=== PATIENT | female | born 1965 | race African-American/Black ===

== ENCOUNTER 2019-09-08 17:38 | Inpatient (IN) | payer OTHER ==
[2019-09-08 20:34] VITALS: BMI 16.6
--- NOTE | 2019-09-08 23:51 | HP ---
COWS - Scale Resting Pulse: 1= VT 81-100 Sweatin=Flushed/Facial Moisture Restless Observation: 1= Difficult to Sit Still Pupil Size: 2= Moderately Dilated (Pupils 4 mm) Bone or Joint Aches: 1= Mild Discomfort Runny Nose/ Eye Tearin= Runny Nose/Eyes GI Upset > 30mins: 3= Vomiting/Diarrhea Tremor Observation: 2= Slight Tremor Visible Yawning Observation: 0= None Anxiety or Irritability: 1=Feels Anxious/Irritable Goose Flesh Skin: 0=Smooth Skin COWS Score: 15 CIWA Score Nausea/Vomitin-Int. Nausea w/Dry Heave (Episoes of vomiting) Muscle Tremors: 3 (Visable) Anxiety: 3 Agitation: 1-Slight > Activity Paroxysmal Sweats: 3 (Increased facial moisture) Orientation: 0-Oriented Tacttile Disturbances: 1-Very Mild Itch/Numbness Auditory Disturbances: 0-None Visual Disturbances: 0-None Headache: 0-None Present CIWA-Ar Total Score: 15 - Admission Criteria OASAS Guidelines: Admission for Medically Managed Detox: Requires at least one of the followin. CIWA greater than 12 2. Seizures within the past 24 hours 3. Delirium tremens within the past 24 hours 4. Hallucinations within the past 24 hours 5. Acute intervention needed for co occurring medical disorder 6. Acute intervention needed for co occurring psychiatric disorder 7. Severe withdrawal that cannot be handled at a lower level of care (continued vomiting, continued diarrhea, abnormal vital signs) requiring intravenous medication and/or fluids 8. Patient presents the following: CIWA greater than 12 Admission Criteria Met: Admission criteria met Admitting History and Physical - Past Medical History ...LMP: 08/13/10 - Smoking History Smoking history: Current every day smoker Have you smoked in the past 12 months: Yes Aproximately how many cigarettes per day: 20 - Alcohol/Substance Use Hx Alcohol Use: Yes (reports drinking since 16 yo,12 pks of beer daily) Admission [facility] Chief Complaint: "Here to get help to get my life on track. My mother yesterday" Allergies/Adverse Reactions: Allergies Allergy/AdvReac Type Severity Reaction Status Date / Time fish derived Allergy Intermediate Hives Verified 09/08/19 20:25 Penicillins Allergy Intermediate Hives Verified 09/08/19 20:25 tomato [Tomato] Allergy Intermediate Hives Verified 09/08/19 20:25 History of Present Illness: 54 yo with alcohol withdrawal symptoms seeking detox. CHUN: 0.0 UTox: +SONDRA w/ a repeat tox unchanged despite patient's hx opiates and clinical symptoms. Hx: Overdose - 01/2019. Denies blackouts. Seizures r/t CVA's Alcohol use began at age 16. Currently drinks 12 packs beer daily. Cocaine use since age 16. Now smokes $100/day Heroin use since age 21. Stopped for a while. Started back using in 2009. States current use 4-5 bags. States used to be on Methadone but left in 2018. No Narcan kit at home. Encouraged to consider MAT. Nicotine use began at age 16. Smokes 1 PPD. PMHx: HIV+ (Questionable medication compliance), Asthma, HTN: Herpes 1 & 2, Seizures (last 2 years ago); s/p Hirschsprung Disease: Osteoarthritis, hemorrhoids Abnormal EKG on 05/28/19 MHHx: Bipolar: Depression: Anxiety: On meds. States see's Dr. Parker in [facility]. Denies thoughts of harming self or others. SHx: Domiciled. Unemployed. ([employer]). Recent ticket for drinking beer on street. Patient Name: Araceli Dela Cruz Date: 1965 Address: [address] [place] [address] Sex: Female Rx Written Rx Dispensed Drug Quantity Days Supply Prescriber Name 09/28/2018 09/28/2018 zolpidem tartrate 10 mg tablet 30 30 Rodolfo Parker Patient Name: ARACELI DELA CRUZ Date: 1965 Address: [address] [place] [address] Sex: Female Rx Written Rx Dispensed Drug Strength Quantity Days Supply Prescriber Name 10/13/2017 10/13/2017 ACETAMINOPHEN-COD #3 TABLET 16.0 4 MILLIE MARTINEZ, IRLANDA 10/14/2017 10/14/2017 CLONAZEPAM 2 MG TABLET 30.0 30 DONNA GINA 11/14/2017 11/14/2017 CLONAZEPAM 2 MG TABLET 30.0 30 David BEAR JOSEPH 09/29/2017 09/29/2017 CLONAZEPAM 2 MG TABLET 15.0 15 DONNA, GINA 12/14/2017 12/14/2017 CLONAZEPAM 2 MG TABLET 30.0 30 MD CARO, MEHRAN Patient Name: ARACELI DELA CRUZ Date: 03/21/1963 Address: [address] [place] [id number] Sex: Female Rx Written Rx Dispensed Drug Strength Quantity Days Supply Prescriber Name 01/14/2016 01/14/2016 OXYCODONE-ACETAMINOPHEN 5-325 13.0000 3 Suresh Francis Patient Name: ARACELI DELA CRUZ Date: 1965 Address: [address] [place] [id number] Sex: Female Rx Written Rx Dispensed Drug Strength Quantity Days Supply Prescriber Name 10/23/2015 10/23/2015 OXYCODONE-ACETAMINOPHEN 5-325 10.0000 2 Radha Hinojosa Exam Limitations: No Limitations - Ebola screening Have you traveled outside of the country in the last 21 days: No (N) Have you had contact with anyone from an Ebola affected area: No Have you been sick,other than usual withdrawal symptoms: No Do you have a fever: No - Review of Systems Constitutional: Chills, Diaphoresis, Changes in sleep (Difficulty falling and staying asleep), Unintentional Wgt. Loss EENT: reports: Blurred Vision, Nose Congestion, Dental Problems (Partials. Chews and swallows ok) Respiratory: reports: No Symptoms reported Cardiac: reports: No Symptoms Reported GI: reports: Blood Streaked Bowels (r/t hemorrhoids), Diarrhea, Nausea, Poor Appetite, Vomiting, Indigestion (Heart burn), Other (hemorrhoids w/ occ blood streaks) : reports: No Symptoms Reported Musculoskeletal: reports: Back Pain (Chronic intermittent sharp, throbbing back pain. States withdrawal makes it worse. Improves w/ tylenol and heating pad.) Integumentary: reports: No Symptoms Reported Neuro: reports: Tremors Endocrine: reports: Increased Thirst Hematology: reports: Anemia Psychiatric: reports: Judgement Intact, Mood/Affect Appropiate, Orientated x3, Agitated, Anxious, Depressed (Denies thoughts of harming self or others.) Other Systems: Reviewed and Negative Patient History - Patient Medical History Hx Anemia: No Hx Asthma: Yes (ON MDI) Hx Chronic Obstructive Pulmonary Disease (COPD): No Hx Cancer: No Hx Cardiac Disorders: No Hx Congestive Heart Failure: No Hx Hypertension: Yes (ON MEDS.) Hx Hypercholesterolemia: No Hx Pacemaker: No HX Cerebrovascular Accident: No Hx Seizures: Yes (WITHDRAWAL SEIZURE) Hx Dementia: No Hx Diabetes: No Hx Gastrointestinal Disorders: Yes (GERD) Hx Liver Disease: No Hx Genitourinary Disorders: No Hx Sexually Transmitted Disorders: (HIV INFECTION) Hx Renal Disease (ESRD): No Hx Thyroid Disease: No Hx Hepatitis C: No Hx Depression: Yes Hx Suicide Attempt: No Hx Bipolar Disorder: Yes (medicated ) Hx Schizophrenia: No - Patient Surgical History Past Surgical History: Yes Hx Neurologic Surgery: No Hx Cataract Extraction: No Hx Cardiac Surgery: No Hx Lung Surgery: No Hx Breast Surgery: No Hx Breast Biopsy: No Hx Abdominal Surgery: Yes (Colostomy reveseral at 13 mos old; myomectomy in 2002 ) Hx Appendectomy: No Hx Cholecystectomy: No Hx Genitourinary Surgery: No Hx Section: No Hx Orthopedic Surgery: No Other Surgical History: Hirschsprung disease congential sx Anesthesia Reaction: No - PPD History Previous Implant?: Yes Documented Results: Negative w/proof Implanted On Prior [facility] Admission?: Yes Date: 05/30/18 Results: 0MM PPD to be Administered?: Yes - Reproductive History Patient is a Female of Child Bearing Age (11 -55 yrs old): Yes Last Menstrual Period: 08/13/10 Patient : No - Smoking Cessation Smoking history: Current every day smoker Have you smoked in the past 12 months: Yes Aproximately how many cigarettes per day: 20 Cigars Per Day: 0 Hx Chewing Tobacco Use: No Initiated information on smoking cessation: Yes 'Breaking Loose' booklet given: 09/09/19 - Substance & Tx. History Hx Alcohol Use: Yes Hx Substance Use: Yes Substance Use Type: Alcohol, Cocaine, Heroin Hx Substance Use Treatment: Yes (detox, rehab, past MMTP) - Substances abused Crack Other (specify): cocaine Substance route: Smoking Frequency: Daily Amount used: 10 bags Age of first use: 16 Date of last use: 09/07/19 Alcohol Substance route: Oral Frequency: Daily Amount used: 4 to 5 cans of beers Age of first use: 16 Date of last use: 09/07/19 Heroin Substance route: Inhalation Frequency: Daily Amount used: 4 to 5 bags Age of first use: 21 Date of last use: 09/07/19 Admission Physical Exam [facility] - Vital Signs Vital Signs: Vital Signs - 24 hr 09/08/19 20:24 Temperature 982 F H Pulse Rate 88 Respiratory 16 Rate Blood Pressure 162/102 H - Physical General Appearance: Yes: Moderate Distress, Thin, Tremorous, Sweating ( Increased facial moisture), Anxious HEENTM: Yes: EOMI, Hearing grossly Normal, Normocephalic, Normal Voice, EFREN ( Pupils 4 mm), Pharynx Normal, Nasal Congestion, Other (Tearing) Respiratory: Yes: Lungs Clear (Pulse Ox = 97 %), Normal Breath Sounds, No Respiratory Distress Neck: Yes: No masses,lesions,Nodules, Supple Breast: Yes: Breast Exam Deferred Cardiology: Yes: Regular Rhythm, Regular Rate, S1, S2, Murmur Abdominal: Yes: Non Tender, Flat, Soft, Increased Bowel Sounds Genitourinary: Yes: Within Normal Limits Back: Yes: Normal Inspection, Other (Soft/firm mass, approx 4 cm at mid upper back. Ni increased warmth, erythema or tenderness) Musculoskeletal: Yes: full range of Motion, Gait Steady Extremities: Yes: Normal Capillary Refill (Peripheral pulses +. 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 NML intact, Fully Oriented, Alert, Motor Strength 5/5, Normal Response Integumentary: Yes: Normal Color, Warm, Moist (Increased facial moisture) Lymphatic: Yes: Within Normal Limits - Diagnostic (1) History of HIV infection Current Visit: Yes Status: Chronic (2) History of hemorrhoids Current Visit: Yes Status: Chronic (3) History of herpes genitalis Current Visit: Yes Status: Chronic (4) History of asthma Current Visit: Yes Status: Chronic (5) Underweight Current Visit: Yes Status: Chronic (6) Murmur, cardiac Current Visit: Yes Status: Acute (7) Alcohol dependence with uncomplicated withdrawal Current Visit: Yes Status: Acute (8) Cocaine dependence Current Visit: No Status: Chronic Qualifiers: Substance use status: uncomplicated Qualified Code(s): F14.20 - Cocaine dependence, uncomplicated (9) GERD (gastroesophageal reflux disease) Current Visit: Yes Status: Chronic Qualifiers: Esophagitis presence: without esophagitis Qualified Code(s): K21.9 - Gastro -esophageal reflux disease without esophagitis (10) HTN (hypertension) Current Visit: Yes Status: Chronic Qualifiers: Hypertension type: essential hypertension Qualified Code(s): I10 - Essential (primary) hypertension (11) Hirschsprung's disease Current Visit: Yes Status: Chronic (12) Nicotine dependence Current Visit: Yes Status: Chronic Qualifiers: Nicotine product type: cigarettes Substance use status: in withdrawal Qualified Code(s): F17.213 - Nicotine dependence, cigarettes, with withdrawal (13) Lipoma of back Current Visit: Yes Status: Chronic Cleared for Admission [facility] - Detox or Rehab [facility] Level of Care: Medically Managed Detox Regimen/Protocol: Valium Claeared for Rehab Admission: No Breathalyzer - Breathalyzer Breathalyzer: 0 Urine Drug Screen - Test Device Lot number: [id number] - Control Is test valid?: Yes - Results Drug screen NEGATIVE: No Urine drug screen results: SONDRA-Cocaine Inpatient Rehab Admission - Rehab Decision to Admit Inpatient rehab admission?: No
[2019-09-09] MEDS ORDERED: MAG HYDROX/AL HYDROX/SIMETH 30 ML UNIT-DOSE CUP PO PRN (00:48)
[2019-09-09] MEDS ORDERED: MAGNESIUM CITRATE 300 ML BOTTLE PO PRN (00:48)
[2019-09-09] MEDS ORDERED: MELATONIN 5 MG TABLETS PO PRN (00:48)
[2019-09-09] MEDS ORDERED: MENTHOL/PHENOL 1 EACH UD MM PRN (00:48)
[2019-09-09] MEDS ORDERED: diazePAM 5 MG TABLET PO ONE (00:48)
[2019-09-09] MEDS ORDERED: ACETAMINOPHEN 325 MG TABLET (FP) PO PRN ×2 (00:48)
[2019-09-09] MEDS ORDERED: METHOCARBAMOL 500 MG TABLET PO PRN (00:48)
[2019-09-09] MEDS ORDERED: IBUPROFEN 400 MG TABLET (FP) PO PRN (00:48)
[2019-09-09] MEDS ORDERED: MAGNESIUM HYDROX 2400MG/30ML ORAL SUSPENSION 30 ML CUP PO PRN (00:48)
[2019-09-09] MEDS ORDERED: BISMUTH SUBSALICYLATE 524 MG/30 ML UD PO PRN (00:48)
[2019-09-09] MEDS ORDERED: diazePAM 5 MG TABLET PO PRN (00:48)
[2019-09-09] MEDS ORDERED: ALBUTEROL SO4 8 GM HFA INHALER IH PRN (01:00)
[2019-09-09] MEDS ORDERED: cloNIDine HCL 0.1 MG TABLET PO PRN (01:00)
[2019-09-09] MEDS ORDERED: BENZOCAINE 28 GM HEMORRHOIDAL OINTMENT PR PRN (01:36)
[2019-09-09] MEDS: cloNIDine HCL 0.1 MG TABLET PO SCH ×4 (02:34→18:31)
[2019-09-09] MEDS: diazePAM 5 MG TABLET PO SCH ×3 (06:01→22:56)
--- NOTE | 2019-09-09 10:23 | EKG ---
Test Reason : Blood Pressure : / mmHG Vent. Rate : 077 BPM Atrial Rate : 077 BPM P-R Int : 124 ms QRS Dur : 082 ms QT Int : 420 ms P-R-T Axes : 057 005 -10 degrees QTc Int : 475 ms NORMAL SINUS RHYTHM POSSIBLE LEFT ATRIAL ENLARGEMENT LEFT VENTRICULAR HYPERTROPHY NONSPECIFIC T WAVE ABNORMALITY ABNORMAL ECG WHEN COMPARED WITH ECG OF 29-MAY-2018 11:47, NO SIGNIFICANT CHANGE WAS FOUND Confirmed by LAITH MONIQUE, JAMEL ([id number]) on 09/09/2019 10:22:42 AM Referred By: TORI Confirmed By:JAMEL OZUNA MD
[2019-09-09 10:32] LABS: MCH 29.3 pg (25.7-33.7); MCHC 32.6 g/dl (32.0-36.0); MEAN CELL VOLUME 89.6 fl (80-96); MEAN PLT VOLUME 9.3 fl (7.5-11.1); PLATELET COUNT 228 K/MM3 (134-434); RBC 4.46 M/mm3 (3.60-5.2); RDW 14.8 % (11.6-15.6); WHITE BLOOD COUNT 3.8 K/mm3 (4.0-10.0)
[2019-09-09] MEDS: PRENATAL VITAMINS W/ FOLIC ACID TABLET (FP) PO SCH (10:40)
[2019-09-09] MEDS: valACYclovir HCL 500 MG TABLET (FP) PO SCH ×2 (10:41→22:55)
[2019-09-09] MEDS: NICOTINE 14 MG/24 HOURS TOPICAL PATCH TD SCH (10:41)
[2019-09-09] MEDS: BUDESONIDE/FORMETEROL FUMARATE 160/4.5 mcg INHALER IH SCH ×2 (10:41→22:57)
[2019-09-09] MEDS: amLODIPine BESYLATE 10 MG TABLET (FP) PO SCH (10:41)
[2019-09-09 10:49] LABS: ALBUMIN 3.1 g/dl (3.4-5.0); BILIRUBIN,TOTAL 0.3 mg/dL (0.2-1); BLOOD UREA NITROGEN 12.9 mg/dL (7-18); CALCIUM 9.1 mg/dL (8.5-10.1); CREATININE 0.7 mg/dL (0.55-1.3); POTASSIUM 3.7 mmol/L (3.5-5.1); TOT PROT 6.6 g/dl (6.4-8.2)
--- NOTE | 2019-09-09 11:38 | PN ---
S CIWA - CIWA Score Nausea/Vomitin-Mild Nausea/No Vomiting Muscle Tremors: 2 Anxiety: 3 Agitation: 3 Paroxysmal Sweats: 1-Minimal Palms Moist Orientation: 0-Oriented Tacttile Disturbances: 0-None Auditory Disturbances: 0-None Visual Disturbances: 0-None Headache: 1-Very Mild CIWA-Ar Total Score: 11 BHS Progress Note (SOAP) Subjective: Pt admitted yesterday for alcohol detox- pt has HIV, asthma. Pt states she has been taking HIV meds consistently and needs to have it continued here. O: Vital Signs - 24 hr 09/08/19 09/09/19 09/09/19 20:24 01:54 03:30 Temperature 982 F H 98.4 F Pulse Rate 88 82 Respiratory 16 18 18 Rate Blood Pressure 162/102 H 176/116 H 09/09/19 09/09/19 06:00 09:44 Temperature 98.1 F 98.4 F Pulse Rate 84 83 Respiratory 16 18 Rate Blood Pressure 145/94 124/97 Laboratory Tests 09/09/19 09/09/19 08:10 08:10 WBC 3.8 L RBC 4.46 Hgb 13.0 Hct 40.0 MCV 89.6 MCH 29.3 MCHC 32.6 RDW 14.8 D Plt Count 228 MPV 9.3 Sodium 142 Potassium 3.7 Chloride 110 H Carbon Dioxide 24 Anion Gap 8 BUN 12.9 Creatinine 0.7 Est GFR (CKD-EPI)AfAm 115.45 Est GFR (CKD-EPI)NonAf 99.62 Random Glucose 100 Calcium 9.1 Total Bilirubin 0.3 AST 10 L ALT 19 Alkaline Phosphatase 71 Total Protein 6.6 Albumin 3.1 L a/p: alcohol detox- pt on detox protocol HIV- continued regimen, neurotin for neuropathy asthma- continue treatment
[2019-09-09] MEDS ORDERED: PNEUMOC 13-VAL CONJ-DIP CRM/PF 0.5 ML DISP.SYRIN IM ONE (12:00)
[2019-09-09] MEDS: EMTRICITABINE 200MG/TENOFOVIR 300MG PO SCH (12:27)
[2019-09-09] MEDS: RALTEGRAVIR POTASSIUM 400 MG TAB PO SCH ×2 (12:27→22:54)
[2019-09-09] MEDS: GABAPENTIN 300 MG CAPSULE (FP) PO SCH ×2 (13:10→22:55)
[2019-09-09] MEDS ORDERED: PHENYLEPHRINE 0.25%/STARCH 1 EACH SUPP.RECT RC PRN (14:00)
[2019-09-09] MEDS ORDERED: LOPERAMIDE HCL 2 MG CAPSULE PO SCH (14:00)
[2019-09-09] MEDS: LOPERAMIDE HCL 2 MG CAPSULE PO SCH (18:31)
[2019-09-09] MEDS: MONTELUKAST NA 10 MG TABLET PO SCH (22:55)
[2019-09-09] MEDS: THIAMINE HCL 100 MG TABLET (FP) PO SCH (22:56)
[2019-09-10] MEDS: cloNIDine HCL 0.1 MG TABLET PO SCH ×4 (03:17→22:29)
[2019-09-10] MEDS: LOPERAMIDE HCL 2 MG CAPSULE PO SCH ×3 (06:05→17:08)
[2019-09-10] MEDS: GABAPENTIN 300 MG CAPSULE (FP) PO SCH ×3 (06:05→22:27)
[2019-09-10] MEDS: diazePAM 5 MG TABLET PO SCH ×2 (06:08→21:39)
[2019-09-10] MEDS: valACYclovir HCL 500 MG TABLET (FP) PO SCH ×2 (10:50→22:28)
[2019-09-10] MEDS: EMTRICITABINE 200MG/TENOFOVIR 300MG PO SCH (10:50)
[2019-09-10] MEDS: amLODIPine BESYLATE 10 MG TABLET (FP) PO SCH (10:51)
[2019-09-10] MEDS: PRENATAL VITAMINS W/ FOLIC ACID TABLET (FP) PO SCH (10:51)
[2019-09-10] MEDS: NICOTINE 14 MG/24 HOURS TOPICAL PATCH TD SCH (10:51)
[2019-09-10] MEDS: BUDESONIDE/FORMETEROL FUMARATE 160/4.5 mcg INHALER IH SCH ×2 (10:51→22:28)
[2019-09-10] MEDS: RALTEGRAVIR POTASSIUM 400 MG TAB PO SCH ×2 (12:21→22:27)
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
[2019-09-10] MEDS ORDERED: hydrOXYzine PAMOATE 25 MG CAPSULE (FP) PO PRN (13:44)
--- NOTE | 2019-09-10 17:54 | PN ---
S CIWA - CIWA Score Nausea/Vomitin-Mild Nausea/No Vomiting Muscle Tremors: 2 Anxiety: 2 Agitation: 2 Paroxysmal Sweats: 2 Orientation: 0-Oriented Tacttile Disturbances: 0-None Auditory Disturbances: 0-None Visual Disturbances: 0-None Headache: 0-None Present CIWA-Ar Total Score: 9 BHS Progress Note (SOAP) Subjective: Sweating, chills, diarrhea, tremor, poor appetite. Patient was in hallway and noticed to be hampering over when RN and other staff assisted her to her room. Patient stated that she was feeling dizzy and weak. Fish Warden encouraged patient to drink enough water and stay in her room but patient came out to the nursing station after couple of minutes and was walking with steady gait in nad. Objective: 09/10/19 17:51 Last Vital Signs Temp Pulse Resp BP Pulse Ox 98.1 F 97 H 18 131/74 09/10/19 17:46 09/10/19 17:46 09/10/19 17:46 09/10/19 17:46 PE: Lungs ctab/l, no added breath sounds Heart: RRR, S1S2+ Skin: warm to touch, turgor good Neuro: steady gait Laboratory Tests 09/09/19 09/09/19 09/10/19 08:10 08:10 05:55 WBC 3.8 L RBC 4.46 Hgb 13.0 Hct 40.0 MCV 89.6 MCH 29.3 MCHC 32.6 RDW 14.8 D Plt Count 228 MPV 9.3 Sodium 142 Potassium 3.7 Chloride 110 H Carbon Dioxide 24 Anion Gap 8 BUN 12.9 Creatinine 0.7 Est GFR (CKD-EPI)AfAm 115.45 Est GFR (CKD-EPI)NonAf 99.62 Random Glucose 100 Calcium 9.1 Total Bilirubin 0.3 AST 10 L ALT 19 Alkaline Phosphatase 71 Total Protein 6.6 Albumin 3.1 L RPR Titer Nonreactive Labs reviewed: albumin 3.1 (L) Assessment: 09/10/19 17:52 Withdrawal sxs Noted with hypoalbuminemia Plan: Continue detox Encouraged PO water intake Hypoalbuminemia: encouraged diet and ensure
[2019-09-10 18:35] LABS: EPI CELLS 4.3 /HPF (0-5/HPF); HYALINE CASTS 2 /lpf (0-8); URINE APPEARANCE CLOUDY; URINE BILIRUBIN NEGATIVE (NEGATIVE); URINE COLOR YELLOW; URINE GLUCOSE (UA) NEGATIVE (NEGATIVE); URINE KETONE NEGATIVE (NEGATIVE); URINE LEUK ESTERASE 2+ (NEGATIVE); URINE NITRITE NEGATIVE (NEGATIVE); URINE PROTEIN NEGATIVE (NEGATIVE); URINE RBC 3 /hpf (0-4); URINE UROBILINOGEN 0.2 mg/dL (0.2-1.0); URINE WBC 5 /hpf (0-5)
[2019-09-10] MEDS: THIAMINE HCL 100 MG TABLET (FP) PO SCH (21:39)
[2019-09-10] MEDS: traZODone HCL 50 MG TABLET (FP) PO SCH (21:39)
[2019-09-10] MEDS ORDERED: diphenhydrAMINE HCL 25 MG CAPSULE (FP) PO PRN (22:00)
[2019-09-10] MEDS: MONTELUKAST NA 10 MG TABLET PO SCH (22:28)
[2019-09-10] MEDS: LURASIDONE HCL 40 MG TABLET PO SCH (22:51)
[2019-09-11 00:19] LABS: URINE CRYSTALS 3 CA OXALATE /hpf
[2019-09-11] MEDS: GABAPENTIN 300 MG CAPSULE (FP) PO SCH ×3 (05:55→21:05)
[2019-09-11] MEDS ORDERED: diazePAM 5 MG TABLET PO ONE (06:00)
[2019-09-11] MEDS: LOPERAMIDE HCL 2 MG CAPSULE PO SCH ×3 (06:00→16:59)
[2019-09-11] MEDS: RALTEGRAVIR POTASSIUM 400 MG TAB PO SCH ×2 (10:12→21:05)
[2019-09-11] MEDS: NICOTINE 14 MG/24 HOURS TOPICAL PATCH TD SCH (10:12)
[2019-09-11] MEDS: valACYclovir HCL 500 MG TABLET (FP) PO SCH ×2 (10:14→21:04)
[2019-09-11] MEDS: EMTRICITABINE 200MG/TENOFOVIR 300MG PO SCH (10:14)
[2019-09-11] MEDS: amLODIPine BESYLATE 10 MG TABLET (FP) PO SCH (10:14)
[2019-09-11] MEDS: PRENATAL VITAMINS W/ FOLIC ACID TABLET (FP) PO SCH (10:14)
[2019-09-11] MEDS: BUDESONIDE/FORMETEROL FUMARATE 160/4.5 mcg INHALER IH SCH ×2 (10:14→21:04)
--- NOTE | 2019-09-11 12:22 | PN ---
S CIWA - CIWA Score Nausea/Vomitin-No Nausea/No Vomiting Muscle Tremors: 2 Anxiety: 1-Mildly Anxious Agitation: 1-Slight > Activity Paroxysmal Sweats: 1-Minimal Palms Moist Orientation: 0-Oriented Tacttile Disturbances: 0-None Auditory Disturbances: 0-None Visual Disturbances: 0-None Headache: 0-None Present CIWA-Ar Total Score: 5 BHS Progress Note (SOAP) Subjective: sweats UTI body aches hemorrhoids. I want the cream not the suppository Objective: 09/11/19 12:23 Vital Signs Temperature 97.2 F L 09/11/19 10:00 Pulse Rate 76 09/11/19 10:00 Respiratory Rate 18 09/11/19 10:00 Blood Pressure 107/60 09/11/19 10:00 O2 Sat by Pulse Oximetry (%) Laboratory Tests 09/08/19 09/09/19 09/09/19 11:41 08:10 08:10 WBC 3.8 L RBC 4.46 Hgb 13.0 Hct 40.0 MCV 89.6 MCH 29.3 MCHC 32.6 RDW 14.8 D Plt Count 228 MPV 9.3 Sodium 142 Potassium 3.7 Chloride 110 H Carbon Dioxide 24 Anion Gap 8 BUN 12.9 Creatinine 0.7 Est GFR (CKD-EPI)AfAm 115.45 Est GFR (CKD-EPI)NonAf 99.62 Random Glucose 100 Calcium 9.1 Total Bilirubin 0.3 AST 10 L ALT 19 Alkaline Phosphatase 71 Total Protein 6.6 Albumin 3.1 L Urine Color Urine Appearance Urine pH Ur Specific [place] Urine Protein Urine Glucose (UA) Urine Ketones Urine Blood Urine Nitrite Urine Bilirubin Urine Urobilinogen Ur Leukocyte Esterase Urine WBC (Auto) Urine RBC (Auto) Urine Casts (Auto) U Epithel Cells (Auto) Urine Crystals (Auto) Urine Bacteria (Auto) POC Urine HCG, Qual Negative RPR Titer 09/10/19 09/10/19 05:55 11:41 WBC RBC Hgb Hct MCV MCH MCHC RDW Plt Count MPV Sodium Potassium Chloride Carbon Dioxide Anion Gap BUN Creatinine Est GFR (CKD-EPI)AfAm Est GFR (CKD-EPI)NonAf Random Glucose Calcium Total Bilirubin AST ALT Alkaline Phosphatase Total Protein Albumin Urine Color Yellow Urine Appearance Cloudy Urine pH 5.0 Ur Specific [place] 1.020 Urine Protein Negative Urine Glucose (UA) Negative Urine Ketones Negative Urine Blood Negative Urine Nitrite Negative Urine Bilirubin Negative Urine Urobilinogen 0.2 Ur Leukocyte Esterase 2+ H Urine WBC (Auto) 5 Urine RBC (Auto) 3 Urine Casts (Auto) 2 U Epithel Cells (Auto) 4.3 Urine Crystals (Auto) 3 ca oxalate Urine Bacteria (Auto) 48.0 POC Urine HCG, Qual RPR Titer Nonreactive u/a show UTI as per pt confirmation bactrim ds bid x 7 days ordered pt was made aware of hemorrhoids cream ordered [id number] ambulating no acute distress Assessment: 09/11/19 12:25 mild withdrawals Plan: continue detox d/c in am bactrim ds ordered
[2019-09-11] MEDS: NICOTINE POLACRILEX 2 MG GUM BUC PRN ×2 (13:28→18:30)
[2019-09-11] MEDS: SULFAMETHOXAZOLE/TRIMETHOPRIM 800MG/160MG D.S. TABLET PO SCH ×2 (14:25→21:05)
[2019-09-11] MEDS: LURASIDONE HCL 40 MG TABLET PO SCH (17:00)
[2019-09-11] MEDS: MONTELUKAST NA 10 MG TABLET PO SCH (21:05)
[2019-09-11] MEDS: THIAMINE HCL 100 MG TABLET (FP) PO SCH (21:05)
[2019-09-11] MEDS: traZODone HCL 50 MG TABLET (FP) PO SCH (21:05)
[2019-09-12] MEDS: GABAPENTIN 300 MG CAPSULE (FP) PO SCH (05:58)
[2019-09-12] MEDS ORDERED: diazePAM 5 MG TABLET PO ONE (06:00)
[2019-09-12] MEDS: LOPERAMIDE HCL 2 MG CAPSULE PO SCH ×2 (07:01→10:11)
--- NOTE | 2019-09-12 09:23 | DS ---
[facility] Detox Discharge Summary Admission Date: 09/08/19 Discharge Date: 09/12/19 - History Present History: Alcohol Dependence, Cocaine Dependence, MMTP - Physical Exam Results Vital Signs: Vital Signs Temperature 97.7 F 09/12/19 08:05 Pulse Rate 84 09/12/19 08:05 Respiratory Rate 18 09/12/19 08:05 Blood Pressure 114/74 09/12/19 08:05 O2 Sat by Pulse Oximetry (%) Pertinent Admission Physical Exam Findings: Vital Signs Temperature 97.7 F 09/12/19 08:05 Pulse Rate 84 09/12/19 08:05 Respiratory Rate 18 09/12/19 08:05 Blood Pressure 114/74 09/12/19 08:05 O2 Sat by Pulse Oximetry (%) Laboratory Tests 09/08/19 09/09/19 09/09/19 11:41 08:10 08:10 WBC 3.8 L RBC 4.46 Hgb 13.0 Hct 40.0 MCV 89.6 MCH 29.3 MCHC 32.6 RDW 14.8 D Plt Count 228 MPV 9.3 Sodium 142 Potassium 3.7 Chloride 110 H Carbon Dioxide 24 Anion Gap 8 BUN 12.9 Creatinine 0.7 Est GFR (CKD-EPI)AfAm 115.45 Est GFR (CKD-EPI)NonAf 99.62 Random Glucose 100 Calcium 9.1 Total Bilirubin 0.3 AST 10 L ALT 19 Alkaline Phosphatase 71 Total Protein 6.6 Albumin 3.1 L Urine Color Urine Appearance Urine pH Ur Specific [place] Urine Protein Urine Glucose (UA) Urine Ketones Urine Blood Urine Nitrite Urine Bilirubin Urine Urobilinogen Ur Leukocyte Esterase Urine WBC (Auto) Urine RBC (Auto) Urine Casts (Auto) U Epithel Cells (Auto) Urine Crystals (Auto) Urine Bacteria (Auto) POC Urine HCG, Qual Negative RPR Titer 09/10/19 09/10/19 05:55 11:41 WBC RBC Hgb Hct MCV MCH MCHC RDW Plt Count MPV Sodium Potassium Chloride Carbon Dioxide Anion Gap BUN Creatinine Est GFR (CKD-EPI)AfAm Est GFR (CKD-EPI)NonAf Random Glucose Calcium Total Bilirubin AST ALT Alkaline Phosphatase Total Protein Albumin Urine Color Yellow Urine Appearance Cloudy Urine pH 5.0 Ur Specific [place] 1.020 Urine Protein Negative Urine Glucose (UA) Negative Urine Ketones Negative Urine Blood Negative Urine Nitrite Negative Urine Bilirubin Negative Urine Urobilinogen 0.2 Ur Leukocyte Esterase 2+ H Urine WBC (Auto) 5 Urine RBC (Auto) 3 Urine Casts (Auto) 2 U Epithel Cells (Auto) 4.3 Urine Crystals (Auto) 3 ca oxalate Urine Bacteria (Auto) 48.0 POC Urine HCG, Qual RPR Titer Nonreactive aaox3 ambulating no acute distress - Treatment Hospital Course: Detox Protocol Followed, Detoxed Safely, Responded well, Discharged Condition Good, Rehab Referral Accepted Patient has Accepted a Rehab Referral to: pt referred to inpatient rehab [facility] - Medication Discharge Medications: Ambulatory Orders Emtricitabine/Tenofovir [Truvada -] 1 tab PO DAILY 05/28/18 Albuterol Sulfate Inhaler - [Ventolin HFA Inhaler -] 2 inh PO Q6H #1 inhaler 01/12 Gabapentin [Neurontin -] 600 mg PO TID #90 capsule 05/31/18 Montelukast Na [Singulair -] 10 mg PO HS #30 tablet 05/31/18 Valacyclovir HCl [Valtrex -] 500 mg PO BID #60 tablet 05/31/18 Lurasidone HCl [Latuda -] 40 mg PO DAILY #30 tablet 06/06/18 Budesonide/Formeterol Fumarate [SYMBICORT 160/4.5mcg -] 1 inhaler PO DAILY 09/08 Raltegravir [Isentress -] 400 mg PO BID 09/08/19 Amlodipine Besylate [Norvasc -] 10 mg PO DAILY 09/12/19 - Diagnosis (1) Alcohol dependence with uncomplicated withdrawal Current Visit: Yes Status: Chronic (2) Murmur, cardiac Current Visit: Yes Status: Acute (3) Bipolar II disorder Current Visit: Yes Status: Chronic (4) Cocaine dependence Current Visit: Yes Status: Chronic Qualifiers: Substance use status: uncomplicated Qualified Code(s): F14.20 - Cocaine dependence, uncomplicated (5) GERD (gastroesophageal reflux disease) Current Visit: Yes Status: Chronic Qualifiers: Esophagitis presence: without esophagitis Qualified Code(s): K21.9 - Gastro -esophageal reflux disease without esophagitis (6) HTN (hypertension) Current Visit: Yes Status: Chronic Qualifiers: Hypertension type: essential hypertension Qualified Code(s): I10 - Essential (primary) hypertension (7) Hirschsprung's disease Current Visit: Yes Status: Chronic (8) History of HIV infection Current Visit: Yes Status: Chronic (9) History of asthma Current Visit: Yes Status: Chronic (10) History of hemorrhoids Current Visit: Yes Status: Chronic (11) History of herpes genitalis Current Visit: Yes Status: Chronic (12) Lipoma of back Current Visit: Yes Status: Chronic (13) Nicotine dependence Current Visit: Yes Status: Chronic Qualifiers: Nicotine product type: cigarettes Substance use status: uncomplicated Qualified Code(s): F17.210 - Nicotine dependence, cigarettes, uncomplicated (14) Underweight Current Visit: Yes Status: Chronic (15) Cannabis abuse, uncomplicated Current Visit: Yes Status: Chronic (16) Asthma Current Visit: Yes Status: Chronic Qualifiers: Asthma severity: mild Asthma persistence: intermittent Asthma complication type: uncomplicated Qualified Code(s): J45.20 - Mild intermittent asthma, uncomplicated (17) Herpes genitalia Current Visit: No Status: Chronic (18) Methadone maintenance therapy patient Current Visit: Yes Status: Chronic - AMA Did Patient Leave Against Medical Advice: No
[2019-09-12 09:33] VITALS: BP 113/71; PULSE 114; TEMP 97.9
[2019-09-12] MEDS: BUDESONIDE/FORMETEROL FUMARATE 160/4.5 mcg INHALER IH SCH (10:11)
[2019-09-12] MEDS: amLODIPine BESYLATE 10 MG TABLET (FP) PO SCH (10:11)
[2019-09-12] MEDS: EMTRICITABINE 200MG/TENOFOVIR 300MG PO SCH (10:12)
[2019-09-12] MEDS: SULFAMETHOXAZOLE/TRIMETHOPRIM 800MG/160MG D.S. TABLET PO SCH (10:12)
[2019-09-12] MEDS: PRENATAL VITAMINS W/ FOLIC ACID TABLET (FP) PO SCH (10:12)
[2019-09-12] MEDS: valACYclovir HCL 500 MG TABLET (FP) PO SCH (10:12)
[2019-09-12] MEDS: RALTEGRAVIR POTASSIUM 400 MG TAB PO SCH (10:12)
[2019-09-12] MEDS: NICOTINE 14 MG/24 HOURS TOPICAL PATCH TD SCH (10:13)
== END 2019-09-12 10:33 | disposition home or self-care (01) | DRG 897 ==
LOC: YASAS 17:38 → Y6N 23:36
PROVIDERS: ADMIT Allergy & Immunology; ATTEND Allergy & Immunology
PROC: HZ2ZZZZ Detoxification Services for Substance Abuse Treatment (ICD-10-PCS; principal; 2019-09-08)
DX: F10.230 Alcohol dependence with withdrawal, uncomplicated (principal); F11.20 Opioid dependence, uncomplicated; F14.20 Cocaine dependence, uncomplicated; N39.0 Urinary tract infection, site not specified; Q43.1 Hirschsprung's disease; Z68.1 Body mass index [BMI] 19.9 or less, adult; F12.10 Cannabis abuse, uncomplicated; F17.210 Nicotine dependence, cigarettes, uncomplicated; Z21 Asymptomatic human immunodeficiency virus [HIV] infection status; I10 Essential (primary) hypertension; R01.1 Cardiac murmur, unspecified; J45.909 Unspecified asthma, uncomplicated; D17.1 Benign lipomatous neoplasm of skin and subcutaneous tissue of trunk; R77.0 Abnormality of albumin; M19.90 Unspecified osteoarthritis, unspecified site; G62.9 Polyneuropathy, unspecified; R63.6 Underweight; Z87.42 Personal history of other diseases of the female genital tract; Z86.69 Personal history of other diseases of the nervous system and sense organs; Z88.0 Allergy status to penicillin; Z91.013 Allergy to seafood; Z91.018 Allergy to other foods; Z59.0 Homelessness
CPT/HCPCS: 36415; 80053; 81003; 81025; 85027; 86593; 93005; 93010; J0735